=== PATIENT | female | born 1980 | race Hispanic/Latino ===

== ENCOUNTER 2018-08-31 12:53 | Emergency (ER) | payer SELFPAY ==
--- NOTE | 2018-08-31 13:45 | EDPHYS ---
Physician Documentation [facility] Name: Eri Kennedy Age: 37 yrs Sex: Female : 1980 Arrival Date: 08/31/2018 Time: 12:57 Bed 30 Private MD: ED Physician Neo Chatman HPI: 08/31 13:41 This 37 yrs old Female presents to ER via Ambulatory with complaints of jr8 Shortness Of Breath, Cough. 13:41 The patient or guardian reports cough, that is intermittent, described as mild, with no jr8 sputum. Onset: The symptoms/episode began/occurred gradually, 1 week(s) ago. Severity of symptoms: At their worst the symptoms were mild, in the emergency department the symptoms are unchanged. Modifying factors: The symptoms are alleviated by nothing, the symptoms are aggravated by nothing. Associated signs and symptoms: Pertinent positives: rhinorrhea, sore throat. The patient has not experienced similar symptoms in the past. The patient has been recently seen by a physician:. was put on amoxil but still having ear pain and congestion . 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 - Social history:: Smoking status: Patient/guardian denies using tobacco. - Ebola Screening: : No symptoms or risks identified at this time. ROS: 13:41 Eyes: Negative for injury, pain, redness, and discharge, Neck: Negative for injury, jr8 pain, and swelling, Cardiovascular: Negative for chest pain, palpitations, and edema, Abdomen/GI: Negative for abdominal pain, nausea, vomiting, diarrhea, and constipation, Back: Negative for injury and pain, MS/Extremity: Negative for injury and deformity, Skin: Negative for injury, rash, and discoloration, Neuro: Negative for headache, weakness, numbness, tingling, and seizure. 13:41 ENT: Positive for ear pain, rhinorrhea, sinus congestion, sore throat, Negative for drainage from ear(s), sinus pain. 13:41 Respiratory: Positive for cough, Negative for shortness of breath, sputum production, wheezing. Exam: 13:41 Eyes: Pupils equal round and reactive to light, extra-ocular motions intact. Lids and jr8 lashes normal. Conjunctiva and sclera are non-icteric and not injected. Cornea within normal limits. Periorbital areas with no swelling, redness, or edema. ENT: Nares patent. No nasal discharge, no septal abnormalities noted. Tympanic membranes are normal and external auditory canals are clear. Oropharynx with no redness, swelling, or masses, exudates, or evidence of obstruction, uvula midline. Mucous membranes moist. Neck: Trachea midline, no thyromegaly or masses palpated, and no cervical lymphadenopathy. Supple, full range of motion without nuchal rigidity, or vertebral point tenderness. No Meningismus. Cardiovascular: Regular rate and rhythm with a normal S1 and S2. No gallops, murmurs, or rubs. Normal PMI, no JVD. No pulse deficits. Respiratory: Lungs have equal breath sounds bilaterally, clear to auscultation and percussion. No rales, rhonchi or wheezes noted. No increased work of breathing, no retractions or nasal flaring. Abdomen/GI: Soft, non-tender, with normal bowel sounds. No distension or tympany. No guarding or rebound. No evidence of tenderness throughout. Back: No spinal tenderness. No costovertebral tenderness. Full range of motion. Skin: Warm, dry with normal turgor. Normal color with no rashes, no lesions, and no evidence of cellulitis. MS/ Extremity: Pulses equal, no cyanosis. Neurovascular intact. Full, normal range of motion. Neuro: Awake and alert, GCS 15, oriented to person, place, time, and situation. Cranial nerves II-XII grossly intact. Motor strength 5/5 in all extremities. Sensory grossly intact. Cerebellar exam normal. Normal gait. Vital Signs: 13:21 BP 142 / 97; Pulse 76; Resp 20; Temp 98.7; Pulse Ox 100% on R/A; Weight 58.97 kg; ph 14:12 BP 105 / 77; Pulse 81; Resp 18; Pulse Ox 98% ; tl3 MDM: 13:24 Patient medically screened. jr8 13:41 Data reviewed: vital signs, nurses notes, and as a result, I will discharge patient. jr8 Data interpreted: Pulse oximetry: on room air is 100 %. Interpretation: normal. Counseling: I had a detailed discussion with the patient and/or guardian regarding: the historical points, exam findings, and any diagnostic results supporting the discharge/admit diagnosis, the need for outpatient follow up, a family practitioner, to return to the emergency department if symptoms worsen or persist or if there are any questions or concerns that arise at home. Administered Medications: No medications were administered Disposition: 09/01 09:23 Co-signature as Attending Physician, Neo Chatman MD. Disposition: 08/31/18 13:44 Discharged to Home. Impression: Eustachian Tube Dysfunction , Acute upper respiratory infection, unspecified. - Condition is Stable. - Discharge Instructions: Upper Respiratory Infection, Adult. - Prescriptions for Prednisone 20 mg Oral Tablet - take 1 tablet by ORAL route once daily for 5 days; 5 tablet. Claritin- D 24 Hour 10-240 mg Oral Tablet Sustained Release 24 hr - take 1 tablet by ORAL route once daily As needed; 20 tablet. Guaifenesin AC 10- 100 mg/5 mL Oral Liquid - take 10 milliliter by ORAL route every 4 hours As needed; 240 milliliter. - Medication Reconciliation Form, Thank You Letter, Antibiotic Education, Prescription Opioid Use, Work release form form. - Follow up: Private Physician; When: As needed; Reason: Recheck today's complaints, Continuance of care, Re-evaluation by your physician. - Problem is new. - Symptoms have improved. Signatures: Adriano Malik PA PA jr8 Eun Coreas RN RN Neo Chatman MD MD Nataly Cobos RN RN tl3 Corrections: (The following items were deleted from the chart) 08/31 14:15 13:44 08/31/2018 13:44 Discharged to Home. Impression: Eustachian Tube Dysfunction ; tl3 Acute upper respiratory infection, unspecified. Condition is Stable. Forms are Medication Reconciliation Form, Thank You Letter, Antibiotic Education, Prescription Opioid Use. Follow up: Private Physician; When: As needed; Reason: Recheck today's complaints, Continuance of care, Re-evaluation by your physician. Problem is new. Symptoms have improved. jr8
--- NOTE | 2018-08-31 13:45 | ER ---
Nurse's Notes [facility] Name: Eri Kennedy Age: 37 yrs Sex: Female : 1980 Arrival Date: 08/31/2018 Time: 12:57 Bed 30 Private MD: Diagnosis: Eustachian Tube Dysfunction ;Acute upper respiratory infection, unspecified Presentation: 08/31 13:19 Presenting complaint: Patient states: Productive cough, marlene ear pain, SOB, and sore ph throat x 1 week, states, " I went to the DR and they gave me some antibiotics but they aren't helping" Pt currently taking Augmentin and Montelukast, denies fever, N/V/D. Transition of care: patient was not received from another setting of care. Onset of symptoms was August 31, 2018. Risk Assessment: Do you want to hurt yourself or someone else? Patient reports no desire to harm self or others. Initial Sepsis Screen: Does the patient meet any 2 criteria? No. Patient's initial sepsis screen is negative. Does the patient have a suspected source of infection? No. Patient's initial sepsis screen is negative. Care prior to arrival: None. 13:19 Method Of Arrival: Ambulatory ph 13:19 Acuity: NASRA 4 ph Triage Assessment: 14:14 Respiratory: Onset: The symptoms/episode began/occurred three days, the patient has tl3 moderate shortness of breath. 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 - Social history:: Smoking status: Patient/guardian denies using tobacco. - Ebola Screening: : No symptoms or risks identified at this time. Screenin:12 Abuse screen: Denies threats or abuse. Nutritional screening: No deficits noted. tl3 Tuberculosis screening: No symptoms or risk factors identified. Fall Risk None identified. Assessment: 13:30 Reassessment: pt was seen by PCP yesterday and put on Singulair and Augmentin, S/S tl3 persisting not feeling any better. General: Appears in no apparent distress. comfortable, well groomed, well developed, well nourished, Behavior is calm, cooperative, appropriate for age. Pain: Denies pain. Neuro: Level of Consciousness is awake, alert, obeys commands, Oriented to person, place, time, situation, Appropriate for age. Cardiovascular: Patient's skin is warm and dry. Rhythm is regular. Cardiovascular: Heart tones S1 S2 present. Respiratory: Airway is patent Respiratory effort is even, unlabored, Respiratory pattern is regular, symmetrical, Breath sounds are clear bilaterally. Respiratory: Reports cough that is. GI: No signs and/or symptoms were reported involving the gastrointestinal system. : No signs and/or symptoms were reported regarding the genitourinary system. EENT: Reports nasal congestion. Derm: No signs and/or symptoms reported regarding the dermatologic system. 14:12 Reassessment: Patient appears in no apparent distress at this time. No changes from tl3 previously documented assessment. Patient and/or family updated on plan of care and expected duration. Pain level reassessed. Patient is alert, oriented x 3, equal unlabored respirations, skin warm/dry/pink. Vital Signs: 13:21 BP 142 / 97; Pulse 76; Resp 20; Temp 98.7; Pulse Ox 100% on R/A; Weight 58.97 kg; ph 14:12 BP 105 / 77; Pulse 81; Resp 18; Pulse Ox 98% ; tl3 ED Course: 12:57 Patient arrived in ED. as 13:18 Nataly Cobos, RN is Primary Nurse. tl3 13:21 Triage completed. ph 13:22 Arm band placed on Patient placed in an exam room. ph 13:24 [facility]. jr8 13:24 Neo Chatman MD is Attending Physician. jr8 14:12 Patient has correct armband on for positive identification. Diet tray ordered. tl3 14:12 No provider procedures requiring assistance completed. Patient did not have IV access tl3 during this emergency room visit. Administered Medications: No medications were administered Outcome: 13:44 Discharge ordered by . jr8 14:12 Discharged to home ambulatory. tl3 14:12 Condition: stable 14:12 Discharge instructions given to patient, Instructed on discharge instructions, follow up and referral plans. medication usage, Demonstrated understanding of instructions, follow-up care, medications, Prescriptions given X 3. 14:15 Patient left the ED. tl3 Signatures: Melania Pan Josh, PA PA jr8 Eun Coreas, RN RN ph Nataly Cobos RN RN tl3
[2018-08-31 14:30] VITALS: TEMP 98.7
[2018-08-31 14:31] VITALS: BP 105/77; O2SAT 98
== END 2018-08-31 14:15 | disposition home or self-care (01) ==
LOC: ER 12:53
DX: J06.9 Acute upper respiratory infection, unspecified (principal); H69.80 Other specified disorders of Eustachian tube, unspecified ear
CPT/HCPCS: 99282

== ENCOUNTER 2019-10-06 16:13 | Emergency (ER) | payer SELFPAY ==
--- NOTE | 2019-10-06 16:31 | EDPHYS ---
Physician Documentation [facility] Name: Eri Kennedy Age: 38 yrs Sex: Female : 1980 Arrival Date: 10/06/2019 Time: 16:16 Bed 7 Private MD: ED Physician Russell Santos HPI: 10/06 16:27 This 38 yrs old Female presents to ER via Ambulatory with complaints of Flu jr8 Symptoms. 16:27 Onset: The symptoms/episode began/occurred acutely, yesterday. Associated signs and jr8 symptoms: Pertinent positives: cough, fever, sore throat. Modifying factors: The patient symptoms are alleviated by nothing, the patient symptoms are aggravated by nothing. The patient has not experienced similar symptoms in the past. The patient has been recently seen by a physician:. saw pcp yesterday and was flu swabbed. Was negative. Given two shots and sent home. Stated that she feels no better and wants reevaluation. Son of patient recently diagnosed with influenza in this ED . 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 - Coronavirus screen:: The patient has NOT traveled to [place] in the past 14 days. - Social history:: Smoking status: Patient/guardian denies using tobacco. - Ebola Screening: : Patient denies travel to an Ebola-affected area in the 21 days before illness onset. ROS: 16:27 Eyes: Negative for injury, pain, redness, and discharge, Neck: Negative for injury, jr8 pain, and swelling, Cardiovascular: Negative for chest pain, palpitations, and edema, Abdomen/GI: Negative for abdominal pain, nausea, vomiting, diarrhea, and constipation, Back: Negative for injury and pain, MS/Extremity: Negative for injury and deformity, Skin: Negative for injury, rash, and discoloration. 16:27 Constitutional: Positive for body aches, chills, fever, malaise. 16:27 ENT: Positive for rhinorrhea, sinus congestion, sore throat. 16:27 Respiratory: Positive for cough, Negative for dyspnea on exertion, shortness of breath, sputum production, wheezing. 16:27 Neuro: Positive for headache. Exam: 16:27 Constitutional: This is a well developed, well nourished patient who is awake, alert, jr8 and in no acute distress. Eyes: Pupils equal round and reactive to light, extra-ocular motions intact. Lids and lashes normal. Conjunctiva and sclera are non-icteric and not injected. Cornea within normal limits. Periorbital areas with no swelling, redness, or edema. Neck: Trachea midline, no thyromegaly or masses palpated, and no cervical lymphadenopathy. Supple, full range of motion without nuchal rigidity, or vertebral point tenderness. No Meningismus. Cardiovascular: Regular rate and rhythm with a normal S1 and S2. No gallops, murmurs, or rubs. Normal PMI, no JVD. No pulse deficits. Respiratory: Lungs have equal breath sounds bilaterally, clear to auscultation and percussion. No rales, rhonchi or wheezes noted. No increased work of breathing, no retractions or nasal flaring. Abdomen/GI: Soft, non-tender, with normal bowel sounds. No distension or tympany. No guarding or rebound. No evidence of tenderness throughout. Back: No spinal tenderness. No costovertebral tenderness. Full range of motion. Skin: Warm, dry with normal turgor. Normal color with no rashes, no lesions, and no evidence of cellulitis. MS/ Extremity: Pulses equal, no cyanosis. Neurovascular intact. Full, normal range of motion. Neuro: Awake and alert, GCS 15, oriented to person, place, time, and situation. Cranial nerves II-XII grossly intact. Motor strength 5/5 in all extremities. Sensory grossly intact. Cerebellar exam normal. Normal gait. 16:27 ENT: Exam is negative for earache, ear discharge, TM abnormalities, nasal discharge, Mouth: Lips: moist, Oral mucosa: pink and intact, moist, Gums: pink, Tongue: is moist, Posterior pharynx: Airway: patent, Tonsils: are normal in appearance, no enlargement, no erythema, no exudate, no ulcerations, Uvula: midline, non-edematous, no erythema, swelling, is not appreciated, erythema, that is mild. Vital Signs: 16:19 BP 132 / 82; Pulse 75; Resp 18; Temp 98.0; Pulse Ox 100% on R/A; Weight 59.42 kg (R); aj1 Height 4 ft. 9 in. (144.78 cm) (R); Pain 3/10; 16:41 BP 113 / 76; Pulse 80; Resp 18; Temp 98.6(TE); Pulse Ox 100% on R/A; mg2 16:19 Body Mass Index 28.35 (59.42 kg, 144.78 cm) aj1 MDM: 16:23 Patient medically screened. jr8 16:27 Data reviewed: vital signs, nurses notes, and as a result, I will discharge patient. jr8 Data interpreted: Pulse oximetry: on room air is 100 %. Interpretation: normal. Counseling: I had a detailed discussion with the patient and/or guardian regarding: the historical points, exam findings, and any diagnostic results supporting the discharge/admit diagnosis, the need for outpatient follow up, a family practitioner, to return to the emergency department if symptoms worsen or persist or if there are any questions or concerns that arise at home. Administered Medications: No medications were administered Disposition: 10/07 08:13 Co-signature as Attending Physician, Russell Santos MD I agree with the assessment and arie plan of care. Disposition: 10/06/19 16:29 Discharged to Home. Impression: Influenza due to certain identified influenza viruses. - Condition is Stable. - Discharge Instructions: Influenza, Adult. - Prescriptions for Tamiflu 75 mg Oral Capsule - take 1 capsule by ORAL route every 12 hours for 5 days; 10 capsule. Prednisone 20 mg Oral Tablet - take 2 tablet by ORAL route once daily for 5 days; 10 tablet. Guaifenesin AC 10- 100 mg/5 mL Oral Liquid - take 10 milliliter by ORAL route every 4 hours As needed; 240 milliliter. - Medication Reconciliation Form, Thank You Letter, Antibiotic Education, Prescription Opioid Use, Work release form form. - Follow up: Private Physician; When: 5 - 6 days; Reason: Recheck today's complaints, Continuance of care, Re-evaluation by your physician. - Problem is new. - Symptoms have improved. Signatures: Miranda Godoy RN RN aj1 Russell Santos MD MD cha Roszak, Josh, PA PA jr8 Rayshawn Carson RN RN mg2 Corrections: (The following items were deleted from the chart) 10/06 16:42 16:29 10/06/2019 16:29 Discharged to Home. Impression: Influenza due to certain mg2 identified influenza viruses. Condition is Stable. Forms are Medication Reconciliation Form, Thank You Letter, Antibiotic Education, Prescription Opioid Use. Follow up: Private Physician; When: 5 - 6 days; Reason: Recheck today's complaints, Continuance of care, Re-evaluation by your physician. Problem is new. Symptoms have improved. jr8
--- NOTE | 2019-10-06 16:31 | ER ---
Nurse's Notes [facility] Name: Eri Kennedy Age: 38 yrs Sex: Female : 1980 Arrival Date: 10/06/2019 Time: 16:16 Bed 7 Private MD: Diagnosis: Influenza due to certain identified influenza viruses Presentation: 10/06 16:17 Presenting complaint: Patient states: Fever. chills, cough, congestion, and sneezing aj1 since yesterday. States that she went to the doctor yesterday and she was diagnosed with a cold. States that she was tested for the flu and it came back negative. States that she came to the emergency room because she doesn't feel better yet. Transition of care: patient was not received from another setting of care. Onset of symptoms was September 2019. Risk Assessment: Do you want to hurt yourself or someone else? Patient reports no desire to harm self or others. Initial Sepsis Screen: Does the patient meet any 2 criteria? No. Patient's initial sepsis screen is negative. Does the patient have a suspected source of infection? Yes: Productive cough/pneumonia. Care prior to arrival: None. 16:17 Method Of Arrival: Ambulatory aj 16:17 Acuity: NASRA 5 aj1 Triage Assessment: 16:19 General: Appears in no apparent distress. comfortable, Behavior is calm, cooperative, aj1 appropriate for age. Pain: Pain currently is 2 out of 10 on a pain scale. Neuro: Level of Consciousness is awake, alert, obeys commands. Cardiovascular: Patient's skin is warm and dry. Respiratory: Airway is patent Respiratory effort is even, unlabored, Respiratory pattern is regular, symmetrical. 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 - Coronavirus screen:: The patient has NOT traveled to [place] in the past 14 days. - Social history:: Smoking status: Patient/guardian denies using tobacco. - Ebola Screening: : Patient denies travel to an Ebola-affected area in the 21 days before illness onset. Screenin:41 Abuse screen: Denies threats or abuse. Denies injuries from another. Nutritional mg2 screening: No deficits noted. Tuberculosis screening: No symptoms or risk factors identified. Fall Risk None identified. Assessment: 16:40 General: Appears in no apparent distress. comfortable, Behavior is calm, cooperative. mg2 Pain: Denies pain. Neuro: Level of Consciousness is awake, alert, obeys commands, Oriented to person, place, time, situation. Cardiovascular: Capillary refill < 3 seconds Patient's skin is warm and dry. Respiratory: Airway is patent Respiratory effort is even, unlabored, Respiratory pattern is regular, symmetrical. Respiratory: Reports cough that is. GI: No signs and/or symptoms were reported involving the gastrointestinal system. : No signs and/or symptoms were reported regarding the genitourinary system. EENT: No signs and/or symptoms were reported regarding the EENT system. Derm: Skin is intact, is healthy with good turgor, Skin is pink, warm \T\ dry. normal. Musculoskeletal: Circulation, motion, and sensation intact. Capillary refill < 3 seconds. Vital Signs: 16:19 BP 132 / 82; Pulse 75; Resp 18; Temp 98.0; Pulse Ox 100% on R/A; Weight 59.42 kg (R); aj1 Height 4 ft. 9 in. (144.78 cm) (R); Pain 3/10; 16:41 BP 113 / 76; Pulse 80; Resp 18; Temp 98.6(TE); Pulse Ox 100% on R/A; mg2 16:19 Body Mass Index 28.35 (59.42 kg, 144.78 cm) aj1 ED Course: 16:16 Patient arrived in ED. mr 16:19 Triage completed. aj1 16:19 Arm band placed on Patient placed in waiting room, Patient notified of wait time. aj1 16:22 Adriano Malik PA is PHCP. jr8 16:22 Russell Santos MD is Attending Physician. jr8 16:32 Rayshawn Carson, KARL is Primary Nurse. mg2 16:41 Patient has correct armband on for positive identification. Door closed. mg2 16:41 No provider procedures requiring assistance completed. Patient did not have IV access mg2 during this emergency room visit. Administered Medications: No medications were administered Outcome: 16:29 Discharge ordered by . jr8 16:41 Discharged to home ambulatory. mg2 16:41 Condition: stable 16:41 Discharge instructions given to patient, Instructed on discharge instructions, follow up and referral plans. medication usage, Demonstrated understanding of instructions, follow-up care, medications, Prescriptions given X 3. 16:42 Patient left the ED. mg2 Signatures: Miranda Godoy RN RN aj1 Eri Beckwith mr Adriano Malik PA PA jr8 Rayshawn Carson RN RN mg2
[2019-10-06 17:34] VITALS: O2SAT 100
[2019-10-06 17:35] VITALS: BP 113/76; TEMP 98.6
== END 2019-10-06 16:42 | disposition home or self-care (01) ==
LOC: ER 16:13
DX: J10.1 Influenza due to other identified influenza virus with other respiratory manifestations (principal); E78.00 Pure hypercholesterolemia, unspecified; Z88.6 Allergy status to analgesic agent
CPT/HCPCS: 99282

== ENCOUNTER 2022-07-26 15:30 | Emergency (ER) | payer SELFPAY ==
[2022-07-26] MEDS ORDERED: ASPIRIN 81 MG CHEWABLE TABLET ONE (15:57)
--- NOTE | 2022-07-26 16:14 | RAD REPORT ---
EXAM DESCRIPTION: Lj Single View07/26/2022 4:07 pm CLINICAL HISTORY: Chest pain COMPARISON: 2014 FINDINGS: The lungs appear clear of acute infiltrate. The heart is normal size IMPRESSION: No acute abnormalities displayed
[2022-07-26 16:23] LABS: Absolute Lymphocytes (CBC) 2.2 K/uL (0.7-4.9); Hematocrit 36.7 % (36.0-45.0); Lymphocytes % 36.5 % (15.3-44.8); MCV 89.3 fL (80-100); MPV 7.9 fL (7.6-11.3); RBC Red Blood Cell Count 4.11 M/uL (3.86-4.86)
[2022-07-26 16:25] LABS: Protime INR 0.97
[2022-07-26 16:44] LABS: ALT/SGPT 25 U/L (12-78); AST/SGOT 19 U/L (15-37); Alkaline Phosphatase 61 U/L (45-117); BUN Blood Urea Nitrogen 12 mg/dL (7-18); Bicarbonate 27 mmol/L (21-32); Bilirubin Total 0.2 mg/dL (0.2-1.0); Glomerular Filtration Rate 116 ml/min (=/>90); Glucose Level 94 mg/dL (74-106); Magnesium 2.4 mg/dL (1.8-2.4); NT PRO-BNP 29 pg/mL (<125); Potassium 3.4 mmol/L (3.5-5.1); Protein, Total 7.6 g/dL (6.4-8.2); Sodium Level 138 mmol/L (136-145); Troponin High Sensitivity 3.5 pg/mL (<58.9)
[2022-07-26 16:58] LABS: Bilirubin Direct < 0.1 mg/dL (0-0.2)
--- NOTE | 2022-07-26 20:21 | ER ---
Nurse's Notes [facility] Name: Eri Kennedy Age: 41 yrs Sex: Female : 1980 Arrival Date: 07/26/2022 Time: 15:33 Bed 17 Private MD: Diagnosis: Chest pain, unspecified Presentation: 07/26 15:41 Chief complaint: Patient states: chest pain since 0530 this morning on and off that jh5 feels like heavy pressure and squeezing. Coronavirus screen: Vaccine status: Patient reports receiving the 2nd dose of the covid vaccine. Client denies travel out of the [place] in the last 14 days. Ebola Screen: Patient negative for fever greater than or equal to 101.5 degrees Fahrenheit, and additional compatible Ebola Virus Disease symptoms Patient denies exposure to infectious person. Patient denies travel to an Ebola-affected area in the 21 days before illness onset. Initial Sepsis Screen: Does the patient meet any 2 criteria? No. Patient's initial sepsis screen is negative. Does the patient have a suspected source of infection? No. Patient's initial sepsis screen is negative. Risk Assessment: Do you want to hurt yourself or someone else? Patient reports no desire to harm self or others. Onset of symptoms was July 26, 2022. 15:41 Method Of Arrival: Ambulatory [facility] 15:41 Acuity: NASRA 3 [facility] Triage Assessment: 15:43 General: Appears in no apparent distress. uncomfortable, slender, well groomed, well jh developed, Behavior is calm, cooperative, appropriate for age. Pain: Complains of pain in chest. Cardiovascular: Reports chest pain. 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 - Social history:: Smoking status: Patient denies any tobacco usage or history of. Screenin:01 Abuse screen: Denies threats or abuse. Nutritional screening: No deficits noted. vg1 Tuberculosis screening: No symptoms or risk factors identified. Fall Risk No fall in past 12 months (0 pts). No secondary diagnosis (0 pts). IV access (20 points). Ambulatory Aid- None/Bed Rest/Nurse Assist (0 pts). Gait- Normal/Bed Rest/Wheelchair (0 pts) Mental Status- Oriented to own ability (0 pts). Total White Fall Scale indicates No Risk (0-24 pts). Assessment: 15:59 General: Appears in no apparent distress. comfortable, Behavior is calm, cooperative. vg1 Pain: Complains of pain in anterior aspect of left upper chest Pain does not radiate. Pain currently is 7 out of 10 on a pain scale. Quality of pain is described as pressure, Pain began this morning 0515. Neuro: Level of Consciousness is awake, alert, obeys commands, Oriented to person, place, time, situation. Cardiovascular: Denies nausea, palpitations, shortness of breath, Patient's skin is warm and dry. Respiratory: Airway is patent Respiratory effort is even, unlabored. GI: Abdomen is flat, Patient currently denies nausea, vomiting. : No signs and/or symptoms were reported regarding the genitourinary system. EENT: No signs and/or symptoms were reported regarding the EENT system. Derm: Skin is pink, warm \T\ dry. Musculoskeletal: Circulation, motion, and sensation intact. 16:43 Reassessment: Patient appears in no apparent distress at this time. No changes from vg1 previously documented assessment. Patient and/or family updated on plan of care and expected duration. Pain level reassessed. Patient is alert, oriented x 3, equal unlabored respirations, skin warm/dry/pink. 17:45 Reassessment: Patient appears in no apparent distress at this time. No changes from vg1 previously documented assessment. Patient and/or family updated on plan of care and expected duration. Pain level reassessed. Patient is alert, oriented x 3, equal unlabored respirations, skin warm/dry/pink. 18:45 Reassessment: Patient appears in no apparent distress at this time. No changes from vg1 previously documented assessment. Patient is alert, oriented x 3, equal unlabored respirations, skin warm/dry/pink. Vital Signs: 15:41 BP 138 / 86; Pulse 67; Resp 18; Temp 98.6; Pulse Ox 98% on R/A; Weight 57.15 kg; Height jh5 4 ft. 10 in. (147.32 cm); Pain 6/10; 15:59 BP 132 / 86; Pulse 74; Resp 15; Pulse Ox 100% on R/A; vg1 16:43 BP 125 / 85; Pulse 74; Resp 16; Pulse Ox 100% on R/A; vg1 17:45 BP 122 / 82; Pulse 64; Resp 14; Pulse Ox 99% on R/A; vg1 20:35 BP 125 / 88; Pulse 72; Resp 17; Pulse Ox 100% on R/A; kd3 15:41 Body Mass Index 26.33 (57.15 kg, 147.32 cm) 5 ED Course: 15:33 Patient arrived in ED. rg4 15:39 [facility]C [facility] snw 15:39 Carlos Arthur MD is Attending Physician. snw 15:43 Roxanna Boone, KARL is Primary Nurse. vg1 15:43 Triage completed. jh5 15:43 Arm band placed on right wrist. jh5 16:01 Patient has correct armband on for positive identification. Placed in gown. Bed in low vg1 position. Call light in reach. Side rails up X 1. Adult w/ patient. Client placed on continuous cardiac and pulse oximetry monitoring. NIBP monitoring applied. 16:01 Patient maintains SpO2 saturation greater than 95% on room air. vg1 16:09 XRAY Chest (1 view) In Process Unspecified. EDMS 16:14 Initial lab(s) drawn, by me, sent to lab. Inserted saline lock: 20 gauge in right vg1 antecubital area, using aseptic technique. Blood collected. 19:20 Troponin High Sensitivity Sent. vg1 20:35 No provider procedures requiring assistance completed. IV discontinued, intact, kd3 bleeding controlled, No redness/swelling at site. Pressure dressing applied. Administered Medications: 16:02 Drug: Aspirin Chewable Tablet 324 mg Route: PO; vg1 20:36 Follow up: Response: No adverse reaction kd3 Medication: 16:01 VIS not applicable for this client. vg1 Outcome: 20:20 Discharge ordered by . snw 20:35 Discharged to home ambulatory, with family. kd3 20:35 Condition: stable 20:35 Discharge instructions given to patient, Instructed on discharge instructions, follow up and referral plans. medication usage, Demonstrated understanding of instructions, follow-up care, medications, Prescriptions given X 1. 20:39 Patient left the ED. kd3 Signatures: Dispatcher [employer] EDMS Damaris Weaver, MAIL DISTRIBUTION CLERK-C MAIL DISTRIBUTION CLERK-Csnw Gloria Boone rg4 Roxanna Boone, RN RN vg1 Keren Marte, RN RN jh5 Carolyn Gonzalez, RN RN kd3
--- NOTE | 2022-07-26 20:21 | EDPHYS ---
Physician Documentation [facility] Name: Eri Kennedy Age: 41 yrs Sex: Female : 1980 Arrival Date: 07/26/2022 Time: 15:33 Bed 17 Private MD: ED Physician Carlos Arthur HPI: 07/26 17:33 This 41 yrs old Female presents to ER via Ambulatory with complaints of Chest snw Pain. 17:33 The patient or guardian reports chest pain that is located primarily in the anterior snw chest wall, left. Onset: suddenly, today. The pain does not radiate. Associated signs and symptoms: The patient has no apparent associated signs or symptoms. The chest pain is described as a pressure. Duration: The patient or guardian reports multiple episodes. Severity of pain: At its worst the pain was moderate. The patient has not experienced similar symptoms in the past. It is unknown whether or not the patient has recently seen a physician. 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 - Social history:: Smoking status: Patient denies any tobacco usage or history of. ROS: 17:27 Constitutional: Negative for fever, chills, and weight loss, Eyes: Negative for injury, snw pain, redness, and discharge, ENT: Negative for injury, pain, and discharge, Neck: Negative for injury, pain, and swelling, Respiratory: Negative for shortness of breath, cough, wheezing, and pleuritic chest pain, Abdomen/GI: Negative for abdominal pain, nausea, vomiting, diarrhea, and constipation, Back: Negative for injury and pain, : Negative for injury, bleeding, discharge, and swelling, MS/Extremity: Negative for injury and deformity, Skin: Negative for injury, rash, and discoloration, Neuro: Negative for headache, weakness, numbness, tingling, and seizure, Psych: Negative for depression, anxiety, suicide ideation, homicidal ideation, and hallucinations. 17:27 Cardiovascular: Positive for chest pain, of the anterior aspect of left upper chest. Exam: 17:28 Constitutional: This is a well developed, well nourished patient who is awake, alert, snw and in no acute distress. Head/Face: Normocephalic, atraumatic. Eyes: Pupils equal round and reactive to light, extra-ocular motions intact. Lids and lashes normal. Conjunctiva and sclera are non-icteric and not injected. Cornea within normal limits. Periorbital areas with no swelling, redness, or edema. ENT: Nares patent. No nasal discharge, no septal abnormalities noted. Tympanic membranes are normal and external auditory canals are clear. Oropharynx with no redness, swelling, or masses, exudates, or evidence of obstruction, uvula midline. Mucous membranes moist. Neck: Trachea midline, no thyromegaly or masses palpated, and no cervical lymphadenopathy. Supple, full range of motion without nuchal rigidity, or vertebral point tenderness. No Meningismus. Chest/axilla: Normal chest wall appearance and motion. Nontender with no deformity. No lesions are appreciated. Cardiovascular: Regular rate and rhythm with a normal S1 and S2. No gallops, murmurs, or rubs. Normal PMI, no JVD. No pulse deficits. Respiratory: Lungs have equal breath sounds bilaterally, clear to auscultation and percussion. No rales, rhonchi or wheezes noted. No increased work of breathing, no retractions or nasal flaring. Abdomen/GI: Soft, non-tender, with normal bowel sounds. No distension or tympany. No guarding or rebound. No evidence of tenderness throughout. Back: No spinal tenderness. No costovertebral tenderness. Full range of motion. Skin: Warm, dry with normal turgor. Normal color with no rashes, no lesions, and no evidence of cellulitis. MS/ Extremity: Pulses equal, no cyanosis. Neurovascular intact. Full, normal range of motion. Neuro: Awake and alert, GCS 15, oriented to person, place, time, and situation. Cranial nerves II-XII grossly intact. Motor strength 5/5 in all extremities. Sensory grossly intact. Cerebellar exam normal. Normal gait. Psych: Awake, alert, with orientation to person, place and time. Behavior, mood, and affect are within normal limits. Vital Signs: 15:41 BP 138 / 86; Pulse 67; Resp 18; Temp 98.6; Pulse Ox 98% on R/A; Weight 57.15 kg; Height jh5 4 ft. 10 in. (147.32 cm); Pain 6/10; 15:59 BP 132 / 86; Pulse 74; Resp 15; Pulse Ox 100% on R/A; vg1 16:43 BP 125 / 85; Pulse 74; Resp 16; Pulse Ox 100% on R/A; vg1 17:45 BP 122 / 82; Pulse 64; Resp 14; Pulse Ox 99% on R/A; vg1 20:35 BP 125 / 88; Pulse 72; Resp 17; Pulse Ox 100% on R/A; kd3 15:41 Body Mass Index 26.33 (57.15 kg, 147.32 cm) jh5 MDM: 15:40 Patient medically screened. snw 17:34 HEART Score: History: Slightly Suspicious (0), ECG: Normal (0), Age: < or = 45 years snw (0), Risk Factors: 1 or 2 risk factors (1), [Hypercholesterolemia] Troponin: < or = 1 x Normal Limit (0), Total Score = 1. The patient was given aspirin in the Emergency Department. Data reviewed: vital signs, nurses notes. 07/26 15:45 Order name: Basic Metabolic Panel; Complete Time: 17:01 snw 07/26 15:45 Order name: CBC with Diff; Complete Time: 16:25 snw 07/26 15:45 Order name: LFT's; Complete Time: 17:01 snw 07/26 15:45 Order name: Magnesium; Complete Time: 17:01 snw 07/26 15:45 Order name: NT PRO-BNP; Complete Time: 17:01 snw 07/26 15:45 Order name: PT-INR; Complete Time: 16:25 snw 07/26 15:45 Order name: Troponin HS; Complete Time: 17:01 snw 07/26 15:45 Order name: XRAY Chest (1 view); Complete Time: 16:16 snw 07/26 15:45 Order name: EKG; Complete Time: 15:46 snw 07/26 15:45 Order name: Cardiac monitoring; Complete Time: 16:18 snw 07/26 15:45 Order name: EKG - Nurse/Tech; Complete Time: 16:18 snw 07/26 19:08 Order name: EKG; Complete Time: 19:09 snw 07/26 19:08 Order name: Troponin High Sensitivity; Complete Time: 20:20 snw 07/26 15:45 Order name: IV Saline Lock; Complete Time: 16:18 snw 07/26 15:45 Order name: Labs collected and sent; Complete Time: 16:18 snw 07/26 15:45 Order name: O2 Per Protocol; Complete Time: 15:53 snw 07/26 15:45 Order name: O2 Sat Monitoring; Complete Time: 15:53 snw 07/26 19:08 Order name: EKG - Nurse/Tech; Complete Time: 19:58 snw 07/26 20:13 Order name: PO challenge; Complete Time: 20:32 snw EC:25 Rate is 161 beats/min. Rhythm is regular. QRS [place] is Normal. [place] interval is normal. snw QRS interval is normal. QT interval is normal. No Q waves. Clinical impression: NSR w/ Non-specific ST/T Changes. Administered Medications: 16:02 Drug: Aspirin Chewable Tablet 324 mg Route: PO; vg1 20:36 Follow up: Response: No adverse reaction kd3 Disposition Summary: 07/26/22 20:20 Discharge Ordered Location: Home snw Condition: Stable snw Diagnosis - Chest pain, unspecified snw Followup: snw - With: Emergency Department - When: As needed - Reason: Worsening of condition Followup: snw - With: Private Physician - When: 2 - 3 days - Reason: Recheck today's complaints, Continuance of care, Re-evaluation by your physician Discharge Instructions: - Discharge Summary Sheet snw - Nonspecific Chest Pain, Adult snw - Chest Wall Pain snw - Gastroesophageal Reflux Disease, Adult snw - Hypertension, Adult snw - How to Take Your Blood Pressure, [id number] snw - Aspirin and Your Heart snw - Form - Blood Pressure Record Sheet snw Forms: - Medication Reconciliation Form snw - Thank You Letter snw - Antibiotic Education snw - Prescription Opioid Use snw Prescriptions: - Pepcid 20 mg Oral Tablet - take 1 tablet by ORAL route once daily; 20 tablet; Refills: 0, Product snw Selection Permitted Signatures: Dispatcher [employer] Damaris Nelson FNP-C [employer] PROTOTYPING ENGINEER-Terryw Roxanna Boone, RN RN vg1 Keren Marte RN RN jh5 Carolyn Gonzalez RN kd3
[2022-07-27 03:05] VITALS: TEMP 98.6
[2022-07-27 03:10] VITALS: BP 125/88; O2SAT 100
--- NOTE | 2022-07-28 05:47 | EKG ---
Test Date: 2022-07-26 Test Time: 19:55:18 Suction Worker: RAIZA MEASUREMENT RESULTS: Intervals: Rate: 56 MN: 166 QRSD: 78 QT: 440 QTc: 424 [place]: P: 47 MN: 166 QRS: 19 T: 32 INTERPRETIVE STATEMENTS: Sinus bradycardia Cannot rule out Anterior infarct, age undetermined Abnormal ECG Compared to ECG 11/07/2016 16:44:20 Myocardial infarct finding now present Sinus rhythm no longer present Electronically Signed On 07-28-22 05:44:49 CORRECTIONS CASEWORKER by Fracisco Koehler
--- NOTE | 2022-07-28 05:47 | EKG ---
Test Date: 2022-07-26 Test Time: 16:07:14 Grade Checker: MEASUREMENT RESULTS: Intervals: Rate: 63 MD: 158 QRSD: 80 QT: 386 QTc: 395 [place]: P: 47 MD: 158 QRS: 15 T: 45 INTERPRETIVE STATEMENTS: Normal sinus rhythm Normal ECG Compared to ECG 11/07/2016 16:44:20 No significant changes Electronically Signed On 07-28-22 05:44:52 WATERWORKS CHIEF ENGINEER by Fracisco Koehler
== END 2022-07-26 20:39 | disposition home or self-care (01) ==
LOC: ER 15:30
DX: R07.89 Other chest pain (principal); Z88.6 Allergy status to analgesic agent
CPT/HCPCS: 36415; 71045; 80048; 80076; 83735; 83880; 84484; 85025; 85610; 93005; 99284

== ENCOUNTER 2024-05-27 14:36 | Observation (INO) | payer SELFPAY ==
[2024-05-27] MEDS ORDERED: NA CHLORIDE 0.9% 2,000 ML ONE (15:57)
[2024-05-27] MEDS ORDERED: ONDANSETRON 4 MG/2 ML VIAL ONE (15:57)
[2024-05-27 16:50] LABS: Absolute Lymphocytes (CBC) 0.6 K/uL (0.7-4.9); Absolute Monocytes 0.4 K/uL (0.1-1.3); Absolute Neutrophil 9.7 K/uL (1.8-8.0); Basophils % 0.1 % (0-1.3); Eosinophils % 0.1 % (0-4.4); Hematocrit 42.9 % (36.0-45.0); Hemoglobin 14.1 g/dL (12.0-15.0); Lymphocytes % 5.3 % (15.3-44.8); MCH 29.1 pg (27.0-35.0); MCHC 32.9 g/dL (32.0-36.0); MCV 88.6 fL (80-100); MPV 8.3 fL (7.6-11.3); Monocytes % 3.4 % (3.3-12.3); Neutrophils % 91.1 % (41.7-73.7); Platelets 409 thou/uL (152-406); RBC Red Blood Cell Count 4.84 M/uL (3.86-4.86); Red Cell Distribution Width 12.9 % (12.1-15.2)
[2024-05-27 17:08] LABS: Albumin 4.3 g/dL (3.4-5.0); Albumin/Globulin Ratio 0.9 (1.1-1.8); Anion Gap 10.6 mEq/L (5.0-15.0); Bilirubin Total 0.4 mg/dL (0.2-1.0); Globulin 4.6 g/dL (2.3-3.5); Potassium 3.6 mEq/L (3.5-5.1); Protein, Total 8.9 g/dL (6.4-8.2)
[2024-05-27 17:19] LABS: White Blood Cell Scan OK (OK)
[2024-05-27 17:20] LABS: Blood Morphology Comment NOT SEEN (NOT SEEN); Platelet Estimate INCR
[2024-05-27 17:35] LABS: PT Prothrombin Time 12.7 SECONDS (9.4-12.5); PTT, Activated Partial Thromb 34.3 SECONDS (24.3-36.9); Protime INR 1.14
--- NOTE | 2024-05-27 17:50 | RAD REPORT ---
EXAMINATION: CT ABDOMEN AND PELVIS WITH CONTRAST CLINICAL INDICATION: Female, 43 years old.ABD PAIN TECHNIQUE: CT abdomen and pelvis was performed, after the administration of IV contrast, as per [facility]. Axial, sagittal and coronal reconstructions were obtained. One or more of the following dose reduction techniques were used: Automated exposure control, adjustment of the mA and/o r kV according to patient size, and/or iterative reconstruction. Unless otherwise specified, incidental findings do not require dedicated imaging follow-up. [id number]. COMPARISON: No prior exam. FINDINGS: LOWER CHEST: The visualized lung bases are clear. LIVER: Normal in size and contour. No focal lesion. GALLBLADDER/BILE DUCT: No biliary ductal dilatation.? PANCREAS: No significant abnormality. SPLEEN: Normal size. No focal lesion. ADRENALS: Normal; no mass. KIDNEYS AND URETERS: Normal size and contour. No hydronephrosis. Bilateral renal lesions which are ei ther benign in appearance or too small to accurately characterize but statistically benign. GASTROINTESTINAL TRACT: Stomach is non-dilated. Small bowel has normal course and caliber. No colonic wall thickening or pericolonic inflammatory changes. Normal appendix. PERITONEUM: No ascites. LYMPH NODES: No lymphadenopathy. ABDOMINAL AORTA AND OTHER VESSELS: Normal caliber aorta and IVC. URINARY BLADDER: Normal contour. REPRODUCTIVE ORGANS: No pathologic process MUSCULOSKELETAL: No acute or suspicious osseous abnormality. ADDITIONAL FINDINGS: None. IMPRESSION: No acute or significant abnormalities seen in the abdomen or pelvis.
[2024-05-27 19:46] LABS: Specific Gravity > 1.030 (1.005-1.030); Sqamous Epithelial <5 /HPF (None Seen); Urine Bacteria <20 /HPF (<20); Urine Bilirubin NEGATIVE (Negative); Urine Blood 1+ (Negative); Urine Clarity Clear (Clear); Urine Color Colorless (Yellow); Urine Culture Reflex Order NOT NEEDED; Urine Glucose NEGATIVE (Negative); Urine Ketones 1+ (Negative); Urine Microscopic Reflex YN ORDER UMIC; Urine Nitrite NEGATIVE (Negative); Urine Protein NEGATIVE (Negative); Urine RBC <5 /HPF (None Seen); Urine Urobilinogen Normal (Normal); Urine WBC <5 /HPF (<5); Urine Yeast (Budding) Trace /HPF (None Seen); Urine pH 5.5 (5.0-7.0)
[2024-05-27] MEDS ORDERED: LOPERAMIDE HCL 2 MG CAPSULE ONE (20:09)
--- NOTE | 2024-05-27 20:11 | ER ---
Nurse's Notes [facility] Name: Eri Kennedy Age: 43 yrs Sex: Female : 1980 Arrival Date: 05/27/2024 Time: 14:36 Bed 13 Private MD: Diagnosis: Nausea and vomiting;Diarrhea;Sinus tachycardia Presentation: 05/27 15:15 Chief complaint: Patient states: Epigastric pain, nausea vomiting, diarrhea, and cm10 headache onset today. Coronavirus screen: Client denies travel out of the [place] in the last 14 days. Ebola Screen: Patient denies travel to an Ebola-affected area in the 21 days before illness onset. Initial Sepsis Screen: Does the patient meet any 2 criteria? HR > 90 bpm. Does the patient have a suspected source of infection? No. Patient's initial sepsis screen is negative. Risk Assessment: Do you want to hurt yourself or someone else? Patient reports no desire to harm self or others. Onset of symptoms was May 27, 2024. 15:15 Method Of Arrival: Ambulatory cm10 15:15 Acuity: NASRA 3 cm10 Triage Assessment: 15:16 General: Appears in no apparent distress. comfortable, Behavior is calm, cooperative. cm10 Neuro: No deficits noted. Level of Consciousness is awake, alert, obeys commands, Oriented to person, place, time, situation, Appropriate for age. Cardiovascular: Patient's skin is warm and dry. Respiratory: No deficits noted. Airway is patent Respiratory effort is even, unlabored, Respiratory pattern is regular, symmetrical. GI: Reports diarrhea, epigastric pain, nausea, vomiting. Musculoskeletal: No deficits noted. Range of motion: intact in all extremities. 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 - Infectious Disease History:: Denies. - Social history:: Smoking status: Patient denies any tobacco usage or history of. Screenin:56 [facility] ED Fall Risk Assessment (Adult) History of falling in the last 3 months, db including since admission No falls in past 3 months (0 pts) Confusion or Disorientation No (0 pts) Intoxicated or Sedated No (0 pts) Impaired Gait No (0 pts) Mobility Assist Device Used No (0 pt) Altered Elimination No (0 pt) Score/Fall Risk Level 0 - 2 = Low Risk Oriented to surroundings, Maintained a safe environment. Abuse screen: Denies threats or abuse. Denies injuries from another. Nutritional screening: No deficits noted. Tuberculosis screening: No symptoms or risk factors identified. Assessment: 16:48 Reassessment: Patient appears in no apparent distress at this time. Patient and/or db family updated on plan of care and expected duration. Pain level reassessed. Patient is alert, oriented x 3, equal unlabored respirations, skin warm/dry/pink. General: Appears in no apparent distress. comfortable, Behavior is calm, cooperative. Pain: Denies pain. Neuro: Level of Consciousness is awake, alert, obeys commands, Oriented to person, place, time, situation. GI: Abdomen is flat, non-distended, Reports nausea, vomiting. 17:37 Reassessment: NOTIFIED PT OF NEED FOR ANOTHER URINE SPECIMEN. db 17:57 Reassessment: Patient appears in no apparent distress at this time. Patient and/or db family updated on plan of care and expected duration. Pain level reassessed. Patient is alert, oriented x 3, equal unlabored respirations, skin warm/dry/pink. Patient states feeling better. 18:30 Reassessment: Patient appears in no apparent distress at this time. Patient and/or db family updated on plan of care and expected duration. Pain level reassessed. Patient is alert, oriented x 3, equal unlabored respirations, skin warm/dry/pink. PATIENT PROVIDED WATER FOR PO CHALLENGE. 19:37 Reassessment: Patient appears in no apparent distress at this time. Patient and/or kj2 family updated on plan of care and expected duration. Pain level reassessed. Patient is alert, oriented x 3, equal unlabored respirations, skin warm/dry/pink. 20:45 Reassessment: DISCHARGE PENDING DUE TO ELEVATED HEART RATE. kj2 21:20 Reassessment: Patient appears in no apparent distress at this time. Patient and/or kj2 family updated on plan of care and expected duration. Pain level reassessed. Patient is alert, oriented x 3, equal unlabored respirations, skin warm/dry/pink. 22:49 Reassessment: Patient appears in no apparent distress at this time. Patient and/or kj2 family updated on plan of care and expected duration. Pain level reassessed. Patient is alert, oriented x 3, equal unlabored respirations, skin warm/dry/pink. 23:50 Reassessment: Patient appears in no apparent distress at this time. Patient and/or kj2 family updated on plan of care and expected duration. Pain level reassessed. Patient is alert, oriented x 3, equal unlabored respirations, skin warm/dry/pink. 05/28 00:07 Reassessment: NO ANSWER TO PHONE OR 4TH FLOOR EXT FOR REPORT ON 1ST ATTEMPT. kj2 Vital Signs: 05/27 15:15 BP 125 / 95; Pulse 131; Resp 18; Temp 99.9; Pulse Ox 99% ; Weight 63.5 kg; Height 4 ft. cm10 9 in. ; Pain 8/10; 16:39 BP 121 / 79; Pulse 118; Resp 18; Pulse Ox 98% on R/A; db 18:00 BP 123 / 81; Pulse 116; Resp 18; Pulse Ox 100% ; db 20:26 BP 116 / 59; Pulse 120; Resp 18; Temp 98; Pulse Ox 100% on R/A; kj2 20:45 BP 112 / 66; Pulse 139; Resp 18; kj2 21:20 BP 121 / 74 Sitting; Pulse 148; Resp 20; Temp 99.7; Pulse Ox 100% on R/A; kj2 22:13 BP 112 / 60; Pulse 117; Resp 18; Pulse Ox 100% on R/A; kj2 23:50 BP 102 / 67; Pulse 108; Resp 18; Temp 98.8(O); Pulse Ox 98% on R/A; kj2 15:15 Body Mass Index 30.30 (63.50 kg, 144.78 cm) cm10 15:15 Pain Scale: Adult cm10 ED Course: 14:40 Patient arrived in ED. mg5 14:41 Terra Chaves PA-C is PHCP. sb4 14:41 Osmel Kelley MD is Attending Physician. sb4 15:16 Triage completed. cm10 15:17 Arm band placed on left wrist. Patient placed in waiting room. cm10 15:56 Amanda Bartholomew, RN is Primary Nurse. db 16:30 Inserted saline lock: 20 gauge in right antecubital area, using aseptic technique. db Blood collected. Flushed with 10 mL NS. 17:40 CT Abd/Pelvis - IV Contrast Only In Process Unspecified. EDMS 17:57 Patient has correct armband on for positive identification. Bed in low position. Call db light in reach. Side rails up X 1. cushion mat maker on. Pulse ox on. NIBP on. Warm blanket given. Pillow given. 18:53 Door closed. Noise minimized. Lights dimmed. Warm blanket given. kc6 19:11 Tracy Antunez, RN is Primary Nurse. kj2 19:15 Provided Education on: CALL LIGHT. kj2 19:55 EKG done, by ED staff. vk 20:24 No provider procedures requiring assistance completed. kj2 20:42 Attending Physician role handed off by Osmel Kelley MD rt 20:42 Dio Mahajan MD is Attending Physician. rt 22:11 Vangie Chance MD is Hospitalizing Provider. rt 05/28 00:59 Patient admitted, IV remains in place. kj2 Administered Medications: 05/27 16:40 Drug: NS 0.9% IV (30 ml/kg) 30 ml/kg IV at bolus once; Sepsis Protocol Route: IV; Rate: db bolus; Site: right antecubital; 16:40 Drug: Ondansetron IVP 4 mg IVP once; over 2 minutes Route: IVP; Site: right antecubital;db 19:11 Follow up: Response: No adverse reaction kj2 20:14 Drug: Loperamide PO 4 mg PO once Route: PO; kj2 20:27 Follow up: Response: No adverse reaction kj2 21:10 Drug: metoCLOPramide IVP 10 mg IVP once; over 1 to 2 minutes Route: IVP; Site: right kj2 antecubital; 22:29 Follow up: Response: No adverse reaction kj2 21:19 Drug: diphenhydrAMINE IVP 25 mg IVP once Route: IVP; Site: right antecubital; kj2 22:28 Follow up: Response: No adverse reaction kj2 21:19 Drug: Acetaminophen PO 1000 mg PO once Route: PO; kj2 22:29 Follow up: Response: No adverse reaction kj2 21:19 Drug: NS 0.9% IV 500 ml IV at bolus once Route: IV; Rate: bolus; Site: right kj2 antecubital; 22:20 Follow up: IV Status: Completed infusion; IV Intake: 500ml kj2 Medication: 19:15 VIS not applicable for this client. kj2 Intake: 22:20 IV: 500ml; Total: 500ml. kj2 Outcome: 20:10 Discharge ordered by . sb4 20:25 Condition: stable kj2 20:25 Discharged to home ambulatory, with family, kj2 20:25 Discharge instructions given to patient, family, Instructed on discharge instructions, follow up and referral plans. medication usage, Demonstrated understanding of instructions, follow-up care, medications, Prescriptions given X 1, 22:11 Decision to Hospitalize by Provider. rt 05/28 00:59 Patient left the ED. kj2 Signatures: Dispatcher [employer] EDMS Kelsie Vaz, RN RN kc6 Amanda Bartholomew, RN RN Terra Reaves, PA-C PA-C sb4 Dio Mahajan MD MD rt Anika Pan RN RN 10 Emmie An mg5 Elisha Evangelista Krystal, KARL RN kj2 Corrections: (The following items were deleted from the chart) 05/27 20:55 20:25 IV discontinued, intact, bleeding controlled, No redness/swelling at site. kj2 Pressure dressing applied, kj2
--- NOTE | 2024-05-27 20:11 | EDPHYS ---
Physician Documentation [facility] Name: Eri Kennedy Age: 43 yrs Sex: Female : 1980 Arrival Date: 05/27/2024 Time: 14:36 Bed 13 Private MD: ED Physician Dio Mahajan HPI: 05/27 15:21 This 43 yrs old Female presents to ER via Ambulatory with complaints of sb4 Vomiting/Diarrhea. 15:21 The patient presents to the emergency department with nausea, vomiting, diarrhea, sb4 abdominal pain. Onset: The symptoms/episode began/occurred this morning. Possible causes: bad food exposure, viky in the box. The symptoms are aggravated by food , The symptoms are alleviated by nothing. Associated signs and symptoms: The patient has no apparent associated signs or symptoms. The patient has not experienced similar symptoms in the past. The patient has not recently seen a physician. 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 - Infectious Disease History:: Denies. - Social history:: Smoking status: Patient denies any tobacco usage or history of. ROS: 15:21 Constitutional: Negative for fever, chills, and weight loss, sb4 15:21 Abdomen/GI: Positive for abdominal pain, nausea, vomiting, and diarrhea, 15:21 All other systems are negative, Exam: 15:21 Constitutional: This is a well developed, well nourished patient who is awake, alert, sb4 and in no acute distress. Head/Face: Normocephalic, atraumatic. Eyes: Extra-ocular motions intact. Periorbital areas with no swelling, redness, or edema. Respiratory: Lungs have equal breath sounds bilaterally, clear to auscultation and percussion. No rales, rhonchi or wheezes noted. No increased work of breathing, no retractions or nasal flaring. Abdomen/GI: Soft, non-tender, no distension. Skin: Warm, dry with normal turgor. Normal color with no rashes, no lesions, and no evidence of cellulitis. 15:21 Cardiovascular: Rate: tachycardic, Rhythm: regular, 21:04 ECG was reviewed by the Attending Physician. rt Vital Signs: 15:15 BP 125 / 95; Pulse 131; Resp 18; Temp 99.9; Pulse Ox 99% ; Weight 63.5 kg; Height 4 ft. cm10 9 in. ; Pain 8/10; 16:39 BP 121 / 79; Pulse 118; Resp 18; Pulse Ox 98% on R/A; db 18:00 BP 123 / 81; Pulse 116; Resp 18; Pulse Ox 100% ; db 20:26 BP 116 / 59; Pulse 120; Resp 18; Temp 98; Pulse Ox 100% on R/A; kj2 20:45 BP 112 / 66; Pulse 139; Resp 18; kj2 21:20 BP 121 / 74 Sitting; Pulse 148; Resp 20; Temp 99.7; Pulse Ox 100% on R/A; kj2 22:13 BP 112 / 60; Pulse 117; Resp 18; Pulse Ox 100% on R/A; kj2 23:50 BP 102 / 67; Pulse 108; Resp 18; Temp 98.8(O); Pulse Ox 98% on R/A; kj2 15:15 Body Mass Index 30.30 (63.50 kg, 144.78 cm) cm10 15:15 Pain Scale: Adult cm10 MDM: 14:43 Patient medically screened. sb4 20:04 Data reviewed: vital signs, nurses notes, lab test result(s), radiologic studies, and sb4 as a result, I will discharge patient. Consideration of Admission/Observation Escalation of care including admission/observation considered. Counseling: I had a detailed discussion with the patient and/or guardian regarding the historical points, exam findings, and any diagnostic results supporting the discharge/admit diagnosis, lab results, radiology results, the need for outpatient follow up, for definitive care, to return to the emergency department if symptoms worsen or persist or if there are any questions or concerns that arise at home. ED course: Patient states that her nausea and abdominal pain have resolved but her diarrhea persists. She is tolerating crackers and water. Her workup was negative for any bacterial infection, I suspect the elevation in lactate to dehydration or possible viral gastroenteritis. Her repeat lactate was within normal limits. I do not believe that antibiotics are indicated at this time. Will discharge patient home with antiemetics and instructions to rehydrate. 05/27 15:20 Order name: Blood Culture Adult (2) sb4 05/27 15:20 Order name: CBC with Diff; Complete Time: 17:25 sb4 05/27 15:20 Order name: CMP; Complete Time: 17:10 sb4 05/27 15:20 Order name: Lactate w/ 2H reflex if indic.; Complete Time: 17:13 sb4 05/27 15:20 Order name: Protime (+inr); Complete Time: 17:36 sb4 05/27 15:20 Order name: Ptt, Activated; Complete Time: 17:36 sb4 05/27 15:20 Order name: Urinalysis w/ reflexes; Complete Time: 19:47 sb4 05/27 17:20 Order name: CBC Smear Scan; Complete Time: 17:25 EDMS 05/27 18:23 Order name: Lactate w/ 2H reflex if indic.; Complete Time: 19:56 sb4 05/27 19:13 Order name: Ghost Lactate-NO COLLECT Timer; Complete Time: 19:13 EDMS 05/27 22:05 Order name: TSH rt 05/27 22:05 Order name: Magnesium rt 05/27 22:44 Order name: HCG, Quantitative EDMS 05/27 23:26 Order name: Urinalysis w/ reflexes EDMS 05/27 23:26 Order name: CBC with Automated Diff EDMS 05/27 23:26 Order name: CBC with Automated Diff EDMS 05/27 23:26 Order name: Comprehensive Metabolic Panel EDMS 05/27 23:26 Order name: Comprehensive Metabolic Panel EDMS 05/27 23:29 Order name: T4 Free EDMS 05/27 16:59 Order name: CT Abd/Pelvis - IV Contrast Only; Complete Time: 17:57 sb4 05/27 20:46 Order name: EKG; Complete Time: 20:47 rt 05/27 15:20 Order name: Cardiac monitoring; Complete Time: 19:54 sb4 05/27 15:20 Order name: IV Saline Lock - Large Bore; Complete Time: 16:48 sb4 05/27 15:20 Order name: Labs collected and sent; Complete Time: 16:48 sb4 05/27 15:20 Order name: O2 Per Protocol; Complete Time: 16:48 sb4 05/27 15:20 Order name: O2 Sat Monitoring; Complete Time: 16:48 sb4 05/27 15:20 Order name: Vital Signs; Complete Time: 16:48 sb4 05/27 18:23 Order name: PO challenge; Complete Time: 19:05 sb4 05/27 20:46 Order name: EKG - Nurse/Tech; Complete Time: 21:01 rt 05/27 20:46 Order name: Vital Signs; Complete Time: 20:52 rt EC:03 Rate is 129 beats/min. Rhythm is regular, Sinus tachycardia. DE interval is normal at sb4 158 msec. QRS interval is normal at 68 msec. QT interval is normal at 280 msec. No Q waves. T waves are Normal. No ST changes noted. Clinical impression: Sinus tachycardia and No evidence of ischemia. Interpreted by me. Reviewed by me. 21:04 Rate is 133 beats/min. Rhythm is regular, Sinus tachycardia with No ectopy. QRS [place] is rt Normal. DE interval is normal. QRS interval is normal. QT interval is normal. No Q waves. T waves are Normal. No ST changes noted. Interpreted by me. Administered Medications: 16:40 Drug: NS 0.9% IV (30 ml/kg) 30 ml/kg IV at bolus once; Sepsis Protocol Route: IV; Rate: db bolus; Site: right antecubital; 16:40 Drug: Ondansetron IVP 4 mg IVP once; over 2 minutes Route: IVP; Site: right antecubital;db 19:11 Follow up: Response: No adverse reaction kj2 20:14 Drug: Loperamide PO 4 mg PO once Route: PO; kj2 20:27 Follow up: Response: No adverse reaction kj2 21:10 Drug: metoCLOPramide IVP 10 mg IVP once; over 1 to 2 minutes Route: IVP; Site: right kj2 antecubital; 22:29 Follow up: Response: No adverse reaction kj2 21:19 Drug: diphenhydrAMINE IVP 25 mg IVP once Route: IVP; Site: right antecubital; kj2 22:28 Follow up: Response: No adverse reaction kj2 21:19 Drug: Acetaminophen PO 1000 mg PO once Route: PO; kj2 22:29 Follow up: Response: No adverse reaction kj2 21:19 Drug: NS 0.9% IV 500 ml IV at bolus once Route: IV; Rate: bolus; Site: right kj2 antecubital; 22:20 Follow up: IV Status: Completed infusion; IV Intake: 500ml kj2 Disposition: 22:12 Co-signature as Attending Physician, Dio Mahajan MD I reviewed the patient's care rt provided by Advanced Practice Provider \T\ agree w/ the diagnosis \T\ care plan. I personally saw the pt \T\ performed a substantive portion of the visit, incldng all aspects of the (History/Exam/Medical Decision Making). I personally evaluated the patient, patient continues to have sinus tachycardia despite IV fluids. Workup is largely benign. Patient continues having a headache, nausea which did improve with Reglan. Given persistent tachycardia despite aggressive hydration, will admit patient for further management.. Disposition Summary: 05/27/24 22:11 Hospitalization Ordered Notes: Hospitalization Status: Observation rt Provider: Vangie Chance rt Location: Telemetry/MedSurg (observation)(05/27/24 22:11) rt Condition: Stable(05/27/24 22:11) rt Problem: new(05/27/24 22:11) rt Symptoms: have improved(05/27/24 22:11) rt Bed/Room Type: Standard rt Room Assignment: 407(05/27/24 23:46) rv1 Diagnosis - Nausea and vomiting rt - Diarrhea rt - Sinus tachycardia rt Forms: - Medication Reconciliation Form rt - SBAR form rt - Leadership Thank You Letter rt Signatures: Dispatcher [employer] EDAmanda Vargas, RN RN Terra Reaves, PA-C PA-C sb4 Dio Mahajan MD MD rt Katey Pedraza rv1 Anika Pan RN RN cm10 Tracy Antunez RN RN kj2 Corrections: (The following items were deleted from the chart) 20:45 20:10 Home sb4 rt 20:45 20:10 new sb4 rt 20:45 20:10 have improved sb4 rt 20:45 20:10 Stable sb4 rt 20:45 20:10 Viral gastroenteritis sb4 rt 22:44 22:33 HCG, Quantitative ordered. EDMS EDMS 23:27 23:25 T4 FREE+C.LAB.BRZ ordered. EDMS EDMS 23:46 22:11 rt rv1
[2024-05-27] MEDS ORDERED: DIPHENHYDRAMINE 50 MG/ML VIAL ONE (21:00)
[2024-05-27] MEDS ORDERED: METOCLOPRAMIDE 10 MG/2mL INJ ONE (21:00)
[2024-05-27] MEDS ORDERED: ACETAMINOPHEN 500 MG TAB ONE (21:00)
[2024-05-27] MEDS ORDERED: NA CHLORIDE 0.9% 500 ML ONE (21:01)
--- NOTE | 2024-05-27 23:14 | P.HP ---
Certification for Inpatient Patient admitted to: Observation With expected LOS: <2 Midnights Patient will require the following post-hospital care: None Practitioner: I am a practitioner with admitting privileges, knowledge of patient current condition, hospital course, and medical plan of care. Services: Services provided to patient in accordance with Admission requirements found in Title 42 Section 412.3 of the Code of Federal Regulations Patient History Date of Service: 05/28/24 Reason for admission: nausea vomiting diarrhea History of Present Illness: 43-year-old female presented with complaints of nausea vomiting diarrhea. Onset this morning. Concerned that she may have had food poisoning. In the ER she has noted to be tachycardic. She did receive IV fluids. Feeling better but noted to still have elevated heart rate. denies chest pain, dizziness, fevers, cough, or chills. ED treatment NS 0.9% 30 ml/kg Ondasteron 4mg IV, Loperamide 4mg PO, Metoclopramide 10mg, acetaminophen 1000 mg p.o. once, diphenhydramine 25 mg IV once NS 500 cc bolus Allergies ibuprofen [From Motrin] Allergy (Unverified 11/02/16 01:07) Unknown Review of Systems 10-point ROS is otherwise unremarkable General: Weakness, Malaise Cardiovascular: Palpitations Gastrointestinal: Nausea, Vomiting, Diarrhea Physical Examination - Physical Exam General: Alert, In no apparent distress, Oriented x3 HEENT: Atraumatic, Normocephalic Respiratory: Clear to auscultation bilaterally, Normal air movement Cardiovascular: No edema, Normal pulses Gastrointestinal: Normal bowel sounds, No tenderness, No masses, No rebound, No guarding Musculoskeletal: No swelling Integumentary: No rashes, No breakdown Neurological: Normal speech - Studies Laboratory Data (last 24 hrs) 05/27/24 05/27/24 05/27/24 16:36 16:36 16:36 WBC 10.70 Hgb 14.1 Hct 42.9 Plt Count 409 H PT 12.7 H INR 1.14 APTT 34.3 Sodium 136 Potassium 3.6 BUN 11 Creatinine 0.69 Glucose 115 H Total Bilirubin 0.4 AST 45 H ALT 94 H Alkaline Phosphatase 144 H Assessment and Plan - Problems (Diagnosis) (1) Tachycardia Current Visit: Yes Status: Acute (2) Nausea & vomiting Current Visit: Yes Status: Acute (3) Diarrhea Current Visit: Yes Status: Acute - Plan 43-year-old female presents to the ER with 1 day history of nausea vomiting diarrhea. Noted to be tachycardic. Nausea vomiting diarrhea -- Differentials include gastroenteritis -- Improved after receiving IV fluids, antiemetics and loperamide -- Labs are stable -- Could consider redosing loperamide and antiemetic -- Add as needed Zofran Sinus tachycardia -- She denies drinking energy drinks, illegal substances or recent change in medications -- likely secondary to volume depletion -- Continue IV fluids -- Consider adding a beta-opal pending clinical course Full code, anticipate discharge tomorrow - Advance Directives Does patient have a Living Will: No Does patient have a Durable POA for Healthcare: No
[2024-05-27] MEDS ORDERED: MAGNESIUM HYDROXIDE 8% 30 ML PO PRN (23:16)
[2024-05-27] MEDS ORDERED: ONDANSETRON 4 MG/2 ML VIAL IV PRN (23:16)
[2024-05-27 23:21] LABS: Magnesium 1.7 mg/dL (1.6-2.4)
[2024-05-27 23:22] LABS: HCG, Quantitative < 1 mIU/mL (1-3); Thyroid Stimulating Hormone < 0.005 uIU/mL (0.358-3.740)
[2024-05-28] MEDS: NA CHLORIDE 0.9% 1,000 ML IV SCH (01:36)
[2024-05-28 01:41] VITALS: O2SAT 98
[2024-05-28 02:01] VITALS: BMI 30.2
[2024-05-28 06:48] LABS: Albumin 2.9 g/dL (3.4-5.0); Albumin/Globulin Ratio 0.9 (1.1-1.8); Anion Gap 9.1 mEq/L (5.0-15.0); Bilirubin Total 0.3 mg/dL (0.2-1.0); Globulin 3.3 g/dL (2.3-3.5); Potassium 3.1 mEq/L (3.5-5.1); Protein, Total 6.2 g/dL (6.4-8.2)
[2024-05-28 07:28] LABS: Absolute Monocytes 0.4 K/uL (0.1-1.3); Absolute Neutrophil 2.5 K/uL (1.8-8.0); Basophils % 0.3 % (0-1.3); Eosinophils % 0.4 % (0-4.4); Hematocrit 31.1 % (36.0-45.0); Hemoglobin 10.4 g/dL (12.0-15.0); Lymphocytes % 25.6 % (15.3-44.8); MCH 29.7 pg (27.0-35.0); MCHC 33.6 g/dL (32.0-36.0); MCV 88.5 fL (80-100); Monocytes % 9.7 % (3.3-12.3); Nucleated Red Blood Cells % 0.1 % (0-0); Platelets 284 thou/uL (152-406); RBC Red Blood Cell Count 3.52 M/uL (3.86-4.86); Red Cell Distribution Width 12.7 % (12.1-15.2)
--- NOTE | 2024-05-28 08:30 | P.PN ---
Date of Service: 05/28/24 Subjective Pt is doing well with no new complaints Physical Examination - Vitals reviewed - Physical Exam General: Alert, In no apparent distress, Oriented x3 HEENT: WNL Respiratory: Clear to auscultation bilaterally, Normal air movement Cardiovascular: No edema, Normal pulses Gastrointestinal: Normal bowel sounds, No tenderness, No masses, No rebound, No guarding Musculoskeletal: No swelling Integumentary: No rashes, No breakdown Neurological: No focal deficits Assessment and Plan - Problems (Diagnosis) (1) Tachycardia Current Visit: Yes Status: Acute (2) Nausea & vomiting Current Visit: Yes Status: Acute (3) Diarrhea Current Visit: Yes Status: Acute - Plan 43-year-old female presents to the ER with 1 day history of nausea vomiting diarrhea. Noted to be tachycardic. Nausea vomiting diarrhea -- Differentials include gastroenteritis -- Improved after receiving IV fluids, antiemetics and loperamide -- Labs are stable -- Could consider redosing loperamide and antiemetic -- Add as needed Zofran Sinus tachycardia -- She denies drinking energy drinks, illegal substances or recent change in medications -- likely secondary to volume depletion -- Continue IV fluids -- Consider adding a beta-opal pending clinical course Full code, anticipate discharge tomorrow - Advance Directives Does patient have a Living Will: No Does patient have a Durable POA for Healthcare: No
[2024-05-28] MEDS: PROPRANOLOL HCL 10 MG TAB PO SCH (08:31)
[2024-05-28] MEDS: FLU (Fluarix Triv) TS24-25(6MOS UP)/PF 45 MCG/0.5 ML Syringe IM ONE (09:39)
[2024-05-28] MEDS ORDERED: KETOROLAC 30 MG/ML INJ IV ONE (10:04)
--- NOTE | 2024-05-28 11:08 | RAD REPORT ---
EXAM;Thyroid Para Parotid Gland CLINICAL INDICATION: Hyperthyroidism COMPARISON: None FINDINGS: Right lobe of thyroid gland measures 3.6 x 1.7 x 1.3 cm. Left lobe of thyroid gland measures 3.3 x 1.6 x 1 cm. Isthmus unremarkable Thyroid echotexture mildly inhomogeneous. No discrete nodule visualized. IMPRESSION: Mildly inhomogeneous thyroid echotexture may indicate parenchymal disease. No discrete thyroid nodule visualized
[2024-05-28] MEDS: LOPERAMIDE HCL 2 MG CAPSULE PO PRN (12:14)
--- NOTE | 2024-05-28 12:26 | ECHO ---
HEIGHT: 4 ft 9 in WEIGHT: 140 lb 0 oz DATE OF STUDY: 05/28/[address]: Damaris Weaver VTC TECHNICIAN-BC 2-DIMENSIONAL: YES M.MODE: YES DOPPLER: YES COLOR FLOW: YES TDS: PORTABLE: YES DEFINITY: BUBBLE STUDY: DIAGNOSIS: TACHYCARDIA, IMPENDING THYROID STORM ON ARRIVAL CARDIAC HISTORY: CATHERIZATION: NO SURGERY: NO PROSTHETIC VALVE: NO PACEMAKER: NO MEASUREMENTS (cm) DIASTOLIC (NORMALS) SYSTOLIC (NORMALS) IVSd 1.0 (0.6-1.2) LA Diam 2.7 (1.9-4.0) LVEF 65% LVIDd 3.8 (3.5-5.7) LVIDs 2.4 (2.0-3.5) %FS 38% LVPWd 1.0 (0.6-1.2) Ao Diam 2.2 (2.0-3.7) 2 DIMENSIONAL ASSESSMENT: RIGHT ATRIUM: NORMAL LEFT ATRIUM: NORMAL RIGHT VENTRICLE: NORMAL LEFT VENTRICLE: NORMAL TRICUSPID VALVE: NORMAL MITRAL VALVE: NORMAL PULMONIC VALVE: NORMAL AORTIC VALVE: NORMAL PERICARDIAL EFFUSION: NONE AORTIC ROOT: NORMAL LEFT VENTRICULAR WALL MOTION: NORMAL DOPPLER/COLOR FLOW: NORMAL COMMENTS: 1. NORMAL LEFT VENTRICULAR SYSTOLIC FUNCTION, EJECTION FRACTION 65%, NORMAL WALL MOTION 2. NORMAL DIASTOLIC FUNCTION TECHNOLOGIST: ALVIN SEE
--- NOTE | 2024-05-28 12:26 | EKG ---
Test Date: 2024-05-27 Test Time: 19:52:32 Sink Maker: GRZEGORZ MEASUREMENT RESULTS: Intervals: Rate: 129 MO: 158 QRSD: 68 QT: 280 QTc: 410 [place]: P: 57 MO: 158 QRS: 15 T: 27 INTERPRETIVE STATEMENTS: Sinus tachycardia Otherwise normal ECG Compared to ECG 07/26/2022 19:55:18 Sinus bradycardia no longer present Myocardial infarct finding no longer present Electronically Signed On 05-28-24 12:25:02 CDT by Ilan Martinez
--- NOTE | 2024-05-28 12:26 | EKG ---
Test Date: 2024-05-27 Test Time: 21:02:38 [employer] Ii Assembler: PATSY MEASUREMENT RESULTS: Intervals: Rate: 133 [place]: 162 QRSD: 70 QT: 272 QTc: 404 [place]: P: 55 [place]: 162 QRS: 16 T: 27 INTERPRETIVE STATEMENTS: Sinus tachycardia Otherwise normal ECG Compared to ECG 05/27/2024 19:52:32 No significant changes Electronically Signed On 05-28-24 12:24:59 CDT by Ilan Martinez
[2024-05-28 15:45] VITALS: BP 99/64; TEMP 98.4
--- NOTE | 2024-05-28 16:00 | P.DS ---
Admission Date: 05/27/24 Discharge Date: 05/28/24 Disposition: ROUTINE DISCHARGE Discharge Condition: GOOD Reason for Admission: nausea vomiting diarrhea Brief History of Present Illness: 43-year-old female presented with complaints of nausea vomiting diarrhea. Onset this morning. Concerned that she may have had food poisoning. In the ER she has noted to be tachycardic. She did receive IV fluids. Feeling better but noted to still have elevated heart rate. denies chest pain, dizziness, fevers, cough, or chills. ED treatment NS 0.9% 30 ml/kg Ondasteron 4mg IV, Loperamide 4mg PO, Metoclopramide 10mg, acetaminophen 1000 mg p.o. once, diphenhydramine 25 mg IV once NS 500 cc bolus Hospital Course: Ms. Kennedy was slightly tachycardic this morning post rehydration and continues to have a few bouts of diarrhea, treated with loperamide. Symptoms show mild thyrotoxicosis. (BWPS = 30)TSH low and T4 mildly elevated. Propranolol 10mg po BID started. Thyroid ultrasound shows some heterogeneous tissue, no masses. Thyroid antibody pending. Ms. Kennedy is feeling much better and requests discharge. Vital Signs/Physical Exam: Temp Pulse Resp BP Pulse Ox 98.4 F 86 18 99/64 98 05/28/24 15:44 05/28/24 15:44 05/28/24 15:44 05/28/24 15:44 05/28/24 15:44 General: Alert, In no apparent distress, Oriented x3 HEENT: Atraumatic, Normocephalic Neck: Supple Respiratory: Normal air movement Cardiovascular: Regular rate/rhythm, Other (Slightly tachycardic at 105) Capillary refill: <2 Seconds Gastrointestinal: Normal bowel sounds Musculoskeletal: No clubbing Integumentary: No rashes Neurological: Normal speech, Normal tone, Normal affect Lymphatics: No axilla or inguinal lymphadenopathy External genitalia: Deferred Rectal: Deferred Laboratory Data at Discharge: WBC 3.90 thou/uL (4.3-10.9) L 05/28/24 07:14 Hgb 10.4 g/dL (12.0-15.0) L D 05/28/24 07:14 Hct 31.1 % (36.0-45.0) L 05/28/24 07:14 Plt Count 284 thou/uL (152-406) D 05/28/24 07:14 PT 12.7 SECONDS (9.4-12.5) H 05/27/24 16:36 INR 1.14 05/27/24 16:36 APTT 34.3 SECONDS (24.3-36.9) 05/27/24 16:36 Sodium 140 mEq/L (136-145) 05/28/24 06:03 Potassium 3.1 mEq/L (3.5-5.1) L D 05/28/24 06:03 BUN 6 mg/dL (7-18) L 05/28/24 06:03 Creatinine 0.44 mg/dL (0.55-1.02) L 05/28/24 06:03 Glucose 123 mg/dL (74-106) H 05/28/24 06:03 Magnesium 1.7 mg/dL (1.6-2.4) 05/27/24 22:23 Total Bilirubin 0.3 mg/dL (0.2-1.0) 05/28/24 06:03 AST 27 U/L (15-37) 05/28/24 06:03 ALT 55 U/L (13-56) 05/28/24 06:03 Alkaline Phosphatase 90 U/L (45-117) D 05/28/24 06:03 Home Medications: Loperamide HCl [Imodium A-D] 2 mg PO DAILY PRN #5 tab 05/28/24 Loperamide HCl [Imodium A-D] 2 mg PO DAILY PRN #5 tab 05/28/24 Propranolol [Inderal*] 10 mg PO BID #28 tab 05/28/24 Propranolol [Inderal] 10 mg PO BID #28 tab 05/28/24 predniSONE [Deltasone] 20 mg PO BID #11 tab 05/28/24 predniSONE [Deltasone] 20 mg PO BID #11 tab 05/28/24 New Medications: Loperamide HCl [Imodium A-D] 2 mg PO DAILY PRN #5 tab PRN Reason: Diarrhea Loperamide HCl [Imodium A-D] 2 mg PO DAILY PRN #5 tab PRN Reason: Diarrhea Propranolol [Inderal*] 10 mg PO BID #28 tab Propranolol [Inderal] 10 mg PO BID #28 tab predniSONE [Deltasone] 20 mg PO BID #11 tab predniSONE [Deltasone] 20 mg PO BID #11 tab Physician Discharge Instructions: -DC IV and DC home -Follow-up with PCP in 1 to 2 weeks -Follow-up with Endocrinology in 1 to 2 weeks -Please call Dr. Red at [phone] if any questions regarding hospital stay -Please call nursing station at [phone] if any nursing or medication questions -Return to the emergency room if symptoms worsen Diet: Regular Activity: Ad sarah Followup: LOTTIE BARCENAS [Primary Care Provider] -
[2024-05-31 05:34] LABS: Thyroid Peroxidase Antibodies 856 IU/mL (<9)
== END 2024-05-28 18:15 | disposition home or self-care (01) ==
LOC: ER 14:36 → ERHOLD 23:16 → 4TH 05-28 00:50
PROVIDERS: ADMIT Internal Medicine; ATTEND Hospitalist
DX: R11.2 Nausea with vomiting, unspecified (principal); R19.7 Diarrhea, unspecified; R00.0 Tachycardia, unspecified; E78.00 Pure hypercholesterolemia, unspecified
CPT/HCPCS: 36415; 74177; 76536; 80053; 81001; 83605; 83735; 84439; 84443; 84702; 85025; 85610; 85730; 86376; 86800; 87040; 93005; 93306; 96361; 96374; 96375; 99285; G0378; J1200; J2405; J2765; J7030; J7040; Q9967

== ENCOUNTER 2025-06-16 14:10 | Emergency (ER) | payer SELFPAY ==
[2025-06-16 15:33] LABS: Sqamous Epithelial <5 /HPF (None Seen); Urine Crystals Unidentified Few /HPF (None Seen); Urine Culture Reflex Order REFLEXED; Urine Microscopic Reflex YN ORDER UMIC; Urine WBC Clump Rare /HPF (None Seen); Urine Yeast (Budding) Few /HPF (None Seen)
--- NOTE | 2025-06-16 15:45 | ER ---
Nurse's Notes [facility] Name: Eri Kennedy Age: 44 yrs Sex: Female : 1980 Arrival Date: 06/16/2025 Time: 14:10 Bed IW3 Private MD: Diagnosis: UTI/ Urinary tract infection, site not specified Presentation: 06/16 14:39 Chief complaint: Patient states: dysuria since Monday with urinary frequency. Denies me1 fever. Coronavirus screen: At this time, the client does not indicate any symptoms associated with coronavirus-19. Ebola Screen: No symptoms or risks identified at this time. Initial Sepsis Screen: Does the patient meet any 2 criteria? HR > 90 bpm. Does the patient have a suspected source of infection? No. Patient's initial sepsis screen is negative. Risk Assessment: Do you want to hurt yourself or someone else? Patient reports no desire to harm self or others. Onset of symptoms was June 13, 2025. 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 - Infectious Disease History:: Denies. - Social history:: Smoking status: Patient denies any tobacco usage or history of. Screenin:04 [facility] ED Fall Risk Assessment (Adult) History of falling in the last 3 months, jb4 including since admission No falls in past 3 months (0 pts) Confusion or Disorientation No (0 pts) Intoxicated or Sedated No (0 pts) Impaired Gait No (0 pts) Mobility Assist Device Used No (0 pt) Altered Elimination No (0 pt) Score/Fall Risk Level 0 - 2 = Low Risk Oriented to surroundings, Maintained a safe environment. Abuse screen: Denies threats or abuse. Nutritional screening: No deficits noted. Tuberculosis screening: No symptoms or risk factors identified. Assessment: 16:03 General: Appears in no apparent distress. comfortable, Behavior is calm, cooperative, jb4 appropriate for age. Pain: Denies pain. Neuro: Level of Consciousness is awake, alert, obeys commands, Oriented to person, place, time, situation. Cardiovascular: Patient's skin is warm and dry. Respiratory: Airway is patent Respiratory effort is even, unlabored, Respiratory pattern is regular, symmetrical. Derm: Skin is intact, Skin is pink, warm \T\ dry. Musculoskeletal: Circulation, motion, and sensation intact. Range of motion: intact in all extremities. 16:04 : Reports urinary frequency, since Monday. jb4 Vital Signs: 14:39 BP 137 / 96; Pulse 94; Resp 16; Temp 98.3; Pulse Ox 99% ; Weight 61.69 kg; Height 4 ft. me1 10 in. ; 14:39 Body Mass Index 28.42 (61.69 kg, 147.32 cm) in1 ED Course: 14:12 Patient arrived in ED. mr 14:13 Laureen Marie FNP-C [facility]. kb 14:13 Cruz Campbell MD is Attending Physician. kb 14:42 Triage completed. me1 14:42 Arm band placed on Patient placed in waiting room. me1 16:04 Patient has correct armband on for positive identification. Provided Education on: jb4 discharge instructions.. 16:04 No provider procedures requiring assistance completed. Patient did not have IV access jb4 during this emergency room visit. Administered Medications: No medications were administered Medication: 16:04 VIS not applicable for this client. jb4 Outcome: 15:45 Discharge ordered by . kb 16:04 Discharged to home ambulatory, jb4 16:04 Condition: stable 16:04 Discharge instructions given to patient, Instructed on discharge instructions, follow up and referral plans. medication usage, Demonstrated understanding of instructions, follow-up care, medications, Prescriptions given X 2, 16:05 Patient left the ED. jb4 Signatures: Laureen Marie FNP-C COSMETIC SALES CONSULTANT-Eri Cullen, Reg Reg mr Ricardo Higgins, RN RN jb4 Roxane Christiansen RN RN in1
--- NOTE | 2025-06-16 15:46 | EDPHYS ---
Physician Documentation [facility] Name: Eri Kennedy Age: 44 yrs Sex: Female : 1980 Arrival Date: 06/16/2025 Time: 14:10 Bed IW3 Private MD: ED Physician Cruz Campbell HPI: 06/16 14:52 This 44 yrs old Female presents to ER via Ambulatory with complaints of kb Urinary Problem. 14:52 Pt is a 44 year old female who presents for urinary frequency and dysuria that started kb 4 days ago. Denies fever, abd pain. States she has had some flank pain intermittently, but none at this time. . 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 - Infectious Disease History:: Denies. - Social history:: Smoking status: Patient denies any tobacco usage or history of. ROS: 14:51 Constitutional: As per HPI kb Exam: 14:51 Constitutional: This is a well developed, well nourished patient who is awake, alert, kb and in no acute distress. Head/Face: Normocephalic, atraumatic. ENT: Moist Mucous membranes Cardiovascular: Regular rate Respiratory: Respirations even and unlabored. No increased work of breathing. Talking in full sentences Abdomen/GI: Soft, non-tender. No distention Back: No spinal tenderness. No costovertebral tenderness. Full range of motion. Skin: Warm, dry with normal turgor. Normal color. MS/ Extremity: Pulses equal, no cyanosis. Neurovascular intact. Full, normal range of motion. Neuro: Awake and alert, GCS 15, oriented to person, place, time, and situation. Vital Signs: 14:39 BP 137 / 96; Pulse 94; Resp 16; Temp 98.3; Pulse Ox 99% ; Weight 61.69 kg; Height 4 ft. me1 10 in. ; 14:39 Body Mass Index 28.42 (61.69 kg, 147.32 cm) me1 MDM: 14:13 Medical Screening Exam initiated kb 14:52 Differential diagnosis: pyelonephritis, uti, kidney stone. Data reviewed: vital signs, kb nurses notes. 15:42 Test considered but Not performed: Labs: cbc, cmp considered but vss, afebrile, kb nontoxic in appearance. . CT: ct stone considered but pt has no CVA tenderness, fever. CT abd/pelvis considered but pt has no abd or CVA tenderness, no fever, no v/d. . Counseling: I had a detailed discussion with the patient and/or guardian regarding the historical points, exam findings, and any diagnostic results supporting the discharge/admit diagnosis, lab results, the need for outpatient follow up, a family practitioner, to return to the emergency department if symptoms worsen or persist or if there are any questions or concerns that arise at home. 06/16 14:58 Order name: UA Rfx Aneesh Cult if indicated; Complete Time: 15:39 kb 06/16 14:58 Order name: Test, Urine; Complete Time: 15:39 kb 06/16 15:41 Order name: Urine Culture EDMS Administered Medications: No medications were administered Disposition: 18:21 Co-signature as Attending Physician, Cruz Campbell MD I reviewed the patient's care rn provided by the Advanced Practice Provider and agree with the diagnosis and treatment plan. Disposition Summary: 06/16/25 15:45 Discharge Ordered Notes: Location: Home kb Condition: Stable kb Diagnosis - UTI/ Urinary tract infection, site not specified kb Followup: kb - With: Emergency Department - When: - Reason: Worsening of condition Followup: kb - With: Private Physician - When: 2 - 3 days - Reason: Recheck today's complaints, Continuance of care, Re-evaluation by your physician Discharge Instructions: - Discharge Summary Sheet kb - Urinary Tract Infection, Adult, [id number] kb Forms: - Medication Reconciliation Form kb - Antibiotic Education kb - Prescription Opioid Use kb - Patient Portal Instructions kb - Leadership Thank You Letter kb Prescriptions: - Augmentin 875-125 mg Oral Tablet - take 1 tablet ORAL route every 12 hours for 10 days; 20 tablet; Refills: 0, kb Product Selection Permitted - Pyridium 200 mg Oral Tablet - take 1 tablet ORAL route every 8 hours for 3 days; 9 tablet; Refills: 0, kb Product Selection Permitted Signatures: Dispatcher [employer] EDMS Laureen Marie FNP-C FNP-Ckb Cruz Campbell MD MD rn Roxane Christiansen, KARL RN me1
[2025-06-16 19:20] VITALS: BP 137/96; TEMP 98.3; O2SAT 99
== END 2025-06-16 16:05 | disposition home or self-care (01) ==
LOC: ER 14:10
DX: N39.0 Urinary tract infection, site not specified (principal); E78.00 Pure hypercholesterolemia, unspecified; Z88.6 Allergy status to analgesic agent
CPT/HCPCS: 81001; 81025; 87086; 87088; 99283